=== PATIENT | male | born 2000 | race Caucasian/White ===

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

== ENCOUNTER 2019-06-10 17:41 | Emergency (ER) | payer OTHER ==
[~2019-06-10] VITALS: Ht 177.8 cm; Wt 68.2 kg
[2019-06-10] MEDS ORDERED: CefTRIAXone SODIUM 1 GM/VIAL IM ONE (22:45)
[2019-06-10] MEDS ORDERED: AZITHROMYCIN 250 MG TABLET PO ONE (22:45)
[2019-06-10 23:05] VITALS: BP 130/75
[2019-06-10 23:27] LABS: APPEARANCE,URINE CLEAR (CLEAR); BILIRUBIN,URINE NEGATIVE (NEGATIVE); GLUCOSE, URINE (UA) NEGATIVE (NEGATIVE); KETONES,URINE NEGATIVE (NEGATIVE); LEUKOCYTE ESTERASE ,URINE NEGATIVE (NEGATIVE); NITRATE,URINE NEGATIVE (NEGATIVE); OCCULT BLOOD,URINE NEGATIVE (NEGATIVE); PROTEIN,URINE NEGATIVE (NEGATIVE); UROBILINOGEN,URINE 0.2 mg/dL (<=1.0)
[2019-06-10 23:37] LABS: BACTERIA,URINE None Seen /HPF (None Seen); RBC,URINE 0-2 /HPF (0-2); WBC,URINE 0-2 /HPF (0-5)
[2019-06-10 23:38] LABS: SQUAMOUS EPITHELIAL CELL,UR Rare /LPF (None Seen)
== END 2019-06-10 23:21 | disposition left against medical advice (07) ==
LOC: EMS 17:42
DX: A64 Unspecified sexually transmitted disease (principal); F12.90 Cannabis use, unspecified, uncomplicated
CPT/HCPCS: 81001; 87591; 96372; 99283; J0696

== ENCOUNTER 2020-07-24 09:39 | Emergency (ER) | payer OTHER ==
[~2020-07-24] VITALS: Ht 188 cm; Wt 81.8 kg
[2020-07-24 09:46] VITALS: BP 123/78
[2020-07-24] MEDS ORDERED: DOXYCYCLINE HYCLATE 100 MG TABLET PO ONE (10:00)
[2020-07-24] MEDS ORDERED: LIDOCAINE/PF 1% 2 ML VIAL IM ONE (10:00)
[2020-07-24] MEDS ORDERED: LIDOCAINE/PF 1% 2 ML VIAL ONE (10:00)
[2020-07-24] MEDS ORDERED: CefTRIAXone SODIUM 1 GM/VIAL ONE (10:00)
[2020-07-24] MEDS ORDERED: CefTRIAXone SODIUM 1 GM/VIAL IM ONE (10:00)
[2020-07-24] MEDS ORDERED: DOXYCYCLINE HYCLATE 100 MG TABLET ONE (10:02)
[2020-07-24 10:35] LABS: APPEARANCE,URINE CLEAR (CLEAR); BILIRUBIN,URINE NEGATIVE (NEGATIVE); GLUCOSE, URINE (UA) NEGATIVE (NEGATIVE); KETONES,URINE NEGATIVE (NEGATIVE); LEUKOCYTE ESTERASE ,URINE NEGATIVE (NEGATIVE); NITRATE,URINE NEGATIVE (NEGATIVE); OCCULT BLOOD,URINE NEGATIVE (NEGATIVE); PH,URINE 6.5 (5.0-8.0); PROTEIN,URINE NEGATIVE (NEGATIVE); UROBILINOGEN,URINE 0.2 mg/dL (<=1.0)
[2020-07-24 11:20] LABS: BACTERIA,URINE None Seen /HPF (None Seen); RBC,URINE None Seen /HPF (0-2); WBC,URINE None Seen /HPF (0-5)
== END 2020-07-24 10:00 | disposition home or self-care (01) ==
LOC: EMS 09:42
DX: R36.9 Urethral discharge, unspecified (principal)
CPT/HCPCS: 81001; 87491; 87591; 96372; 99283; J0696; J3490

== ENCOUNTER 2020-08-06 19:14 | Emergency (ER) | payer OTHER ==
[~2020-08-06] VITALS: Ht 188 cm; Wt 86.4 kg
[2020-08-06 19:43] VITALS: BP 126/92
== END 2020-08-06 20:04 | disposition home or self-care (01) ==
LOC: EMS 19:14
DX: A74.9 Chlamydial infection, unspecified (principal); F12.90 Cannabis use, unspecified, uncomplicated
CPT/HCPCS: 99283; Z7502

== ENCOUNTER 2021-03-25 21:45 | Emergency (ER) | payer OTHER ==
[~2021-03-25] VITALS: Ht 190.5 cm; Wt 86.4 kg
[2021-03-25] MEDS ORDERED: CefTRIAXone SODIUM 1 GM/VIAL IM ONE (23:00)
[2021-03-25] MEDS ORDERED: LIDOCAINE/PF 1% 2 ML VIAL IM ONE (23:00)
[2021-03-25 23:10] VITALS: BP 115/68
== END 2021-03-25 23:18 | disposition home or self-care (01) ==
LOC: EMS 21:52
DX: A64 Unspecified sexually transmitted disease (principal); F12.90 Cannabis use, unspecified, uncomplicated
CPT/HCPCS: 96372; 99283; J0696; J3490

== ENCOUNTER 2021-10-03 12:01 | Emergency (ER) | payer OTHER ==
[~2021-10-03] VITALS: Ht 170.2 cm; Wt 84.1 kg
[2021-10-03 12:26] VITALS: BP 119/58
[2021-10-03] MEDS ORDERED: CefTRIAXone SODIUM 1 GM/VIAL IM ONE (13:00)
[2021-10-03] MEDS ORDERED: AZITHROMYCIN 500 MG TABLET PO ONE (13:00)
[2021-10-03] MEDS ORDERED: LIDOCAINE/PF 1% 2 ML VIAL IM ONE (13:00)
[2021-10-03 13:26] LABS: APPEARANCE,URINE CLEAR (CLEAR); BILIRUBIN,URINE NEGATIVE (NEGATIVE); GLUCOSE, URINE (UA) NEGATIVE (NEGATIVE); KETONES,URINE NEGATIVE (NEGATIVE); LEUKOCYTE ESTERASE ,URINE SMALL (NEGATIVE); NITRATE,URINE NEGATIVE (NEGATIVE); OCCULT BLOOD,URINE NEGATIVE (NEGATIVE); PH,URINE 6.5 (5.0-8.0); PROTEIN,URINE NEGATIVE (NEGATIVE); SPECIFIC GRAVITIY, URINE 1.007 (1.003-1.030); UROBILINOGEN,URINE <=1.0 mg/dL (<=1.0)
[2021-10-03 14:59] LABS: BACTERIA,URINE None Seen /HPF (None Seen); RBC,URINE None Seen /HPF (0-2); SQUAMOUS EPITHELIAL CELL,UR Few /LPF (None Seen)
== END 2021-10-03 13:55 | disposition home or self-care (01) ==
LOC: EMS 12:04
DX: N34.2 Other urethritis (principal); F12.90 Cannabis use, unspecified, uncomplicated; Z87.39 Personal history of other diseases of the musculoskeletal system and connective tissue
CPT/HCPCS: 81001; 87086; 87491; 87591; 96372; 99283; J0696; J3490; Q9967

== ENCOUNTER 2021-10-27 12:46 | Emergency (ER) | payer OTHER ==
[~2021-10-27] VITALS: Ht 188 cm; Wt 86.4 kg
[2021-10-27] MEDS ORDERED: OXYMETAZOLINE HCL 0.05% 15 ML NASAL SPRAY NASAL ONE (13:45)
[2021-10-27 14:10] LABS: COVID AG,FIA SOURCE NASOPHARYNGEAL
[2021-10-27 14:20] VITALS: BP 121/64
== END 2021-10-27 15:40 | disposition home or self-care (01) ==
LOC: EMS 12:46
DX: B27.90 Infectious mononucleosis, unspecified without complication (principal); Z20.822 Contact with and (suspected) exposure to COVID-19
CPT/HCPCS: 86308; 87430; 99283

== ENCOUNTER 2022-07-14 22:49 | Emergency (ER) | payer OTHER ==
[~2022-07-14] VITALS: Ht 188 cm; Wt 100.0 kg
[2022-07-14 22:50] VITALS: BP 126/77
[2022-07-15] MEDS ORDERED: ACET-3385 PO (00:58)
[2022-07-15] MEDS ORDERED: IBUP-1492 PO (00:58)
[2022-07-15] MEDS ORDERED: IBUPROFEN 600 MG TABLET PO ONE (01:00)
[2022-07-15] MEDS ORDERED: ACETAMINOPHEN 500 MG TABLET PO ONE (01:00)
== END 2022-07-15 01:05 | disposition home or self-care (01) ==
LOC: EMS 23:04
DX: M54.50 Low back pain, unspecified (principal); F12.90 Cannabis use, unspecified, uncomplicated; V99.XXXA Unspecified transport accident, initial encounter; Y93.89 Activity, other specified; Y92.89 Other specified places as the place of occurrence of the external cause; Y99.8 Other external cause status
CPT/HCPCS: 99283

== ENCOUNTER 2022-09-03 16:15 | Emergency (ER) | payer OTHER ==
[~2022-09-03] VITALS: Ht 188 cm; Wt 86.4 kg
[~2022-09-03 16:15] MED LIST: ACET-3385 PO; IBUP-1492 PO
[2022-09-03 16:21] VITALS: BP 130/73
[2022-09-03] MEDS ORDERED: DOXY-354 PO (17:26)
[2022-09-03] MEDS ORDERED: LIDOCAINE/PF 1% 2 ML VIAL IM ONE (17:30)
[2022-09-03] MEDS ORDERED: AZITHROMYCIN 500 MG TABLET PO ONE (17:30)
[2022-09-03] MEDS ORDERED: CefTRIAXone SODIUM 1 GM/VIAL IM ONE (17:30)
== END 2022-09-03 18:05 | disposition home or self-care (01) ==
LOC: EMS 16:16
DX: N34.2 Other urethritis (principal); F12.90 Cannabis use, unspecified, uncomplicated; Z98.890 Other specified postprocedural states
CPT/HCPCS: 99283; 96372; J0696; J3490; Q9967

== ENCOUNTER 2023-10-15 08:32 | Emergency (ER) | payer OTHER ==
[~2023-10-15] VITALS: Ht 188 cm; Wt 90.9 kg
[~2023-10-15 08:32] MED LIST changes: -ACET-3385 PO; +DOXY-354 PO; -IBUP-1492 PO
[2023-10-15 08:36] VITALS: BP 103/56; PULSE 53; RESP 16; TEMP 98.5
[2023-10-15 08:55] LABS: APPEARANCE,URINE CLEAR (CLEAR); BILIRUBIN,URINE NEGATIVE (NEGATIVE); COLOR,URINE LIGHT YELLOW (YELLOW); GLUCOSE, URINE (UA) NEGATIVE (NEGATIVE); KETONES,URINE NEGATIVE (NEGATIVE); LEUKOCYTE ESTERASE ,URINE NEGATIVE (NEGATIVE); NITRATE,URINE NEGATIVE (NEGATIVE); OCCULT BLOOD,URINE NEGATIVE (NEGATIVE); PH,URINE 6.5 (5.0-8.0); PROTEIN,URINE NEGATIVE (NEGATIVE); SPECIFIC GRAVITIY, URINE 1.021 (1.003-1.030); UROBILINOGEN,URINE <=1.0 mg/dL (<=1.0)
[2023-10-15 09:18] LABS: BACTERIA,URINE None Seen /HPF (None Seen); RBC,URINE None Seen /HPF (0-2); WBC,URINE 0-2 /HPF (0-5)
[2023-10-15] MEDS: AZITHROMYCIN 500 MG TABLET PO ONE (09:30)
[2023-10-15] MEDS: CefTRIAXone SODIUM 1 GM/VIAL IM ONE (09:30)
[2023-10-15] MEDS: LIDOCAINE/PF 1% 2 ML VIAL IM ONE (09:30)
== END 2023-10-15 10:21 | disposition home or self-care (01) ==
LOC: EMS 08:32
DX: S70.02XA Contusion of left hip, initial encounter (principal); A64 Unspecified sexually transmitted disease; F12.90 Cannabis use, unspecified, uncomplicated; X58.XXXA Exposure to other specified factors, initial encounter; Y93.89 Activity, other specified; Y92.89 Other specified places as the place of occurrence of the external cause; Y99.8 Other external cause status
CPT/HCPCS: 99284; 81001; 73503; 87491; 87591; 96372; J0696; J3490; Q9967

== ENCOUNTER 2024-02-06 17:04 | Emergency (ER) | payer OTHER ==
[~2024-02-06] VITALS: Ht 188 cm; Wt 90.9 kg
[2024-02-06 17:11] VITALS: BP 124/60; PULSE 101; RESP 18; TEMP 98.3; O2SAT 98
[2024-02-06] MEDS ORDERED: DOXY-354 PO (20:05)
[2024-02-06] MEDS: CefTRIAXone SODIUM 1 GM/VIAL IM ONE (20:15)
[2024-02-06] MEDS: LIDOCAINE/PF 1% 2 ML VIAL IM ONE (20:15)
[2024-02-06] MEDS: AZITHROMYCIN 500 MG TABLET PO ONE (20:16)
== END 2024-02-06 20:25 | disposition home or self-care (01) ==
LOC: EMS 17:04
DX: N34.2 Other urethritis (principal); F12.90 Cannabis use, unspecified, uncomplicated
CPT/HCPCS: 99283; 96372; J0456; J0696; J3490

== ENCOUNTER 2024-12-25 22:05 | Emergency (ER) | payer OTHER ==
[~2024-12-25] VITALS: Ht 190.5 cm; Wt 90.9 kg
[2024-12-25 22:23] VITALS: TEMP 97.9
[2024-12-25] MEDS ORDERED: DOXY-354 PO (22:59)
[2024-12-25] MEDS: DOXYCYCLINE HYCLATE 100 MG TABLET PO ONE (23:06)
[2024-12-25] MEDS: CefTRIAXone SODIUM 1 GM/VIAL IM ONE (23:06)
[2024-12-25] MEDS: LIDOCAINE/PF 1% 2 ML VIAL IM ONE (23:06)
[2024-12-25 23:13] VITALS: BP 128/78; PULSE 61; RESP 15; O2SAT 99
== END 2024-12-25 23:14 | disposition home or self-care (01) ==
LOC: EMS 22:37
DX: Z20.2 Contact with and (suspected) exposure to infections with a predominantly sexual mode of transmission (principal); F12.90 Cannabis use, unspecified, uncomplicated
CPT/HCPCS: 99283; 96372; J0696; J3490